=== PATIENT | female | born 1985 ===

== ENCOUNTER 2020-08-21 05:54 | Inpatient (IN) ==
[2020-08-21] MEDS ORDERED: CITRIC ACID/SODIUM CITRATE 15 ML UDC PO SCH (06:00)
[2020-08-21] MEDS ORDERED: ceFAZolin 2,000 MG in SYRINGE 0 ML IV SCH (06:00)
[2020-08-21] MEDS ORDERED: LACTATED RINGER'S 1,000 ML IV SCH ×2 (06:00→12:45)
[2020-08-21 06:42] LABS: Basophils # (auto) 0.01 K/uL (0-0.2); Basophils % (auto) 0.1 %; Eosinophils # (auto) 0.05 K/uL (0-0.5); Eosinophils % (auto) 0.6 %; Hematocrit (blood only) 35.2 % (37-47); Hemoglobin 11.5 g/dL (12.0-16.0); Immature Granulocytes # (auto) 0.02 K/uL (0.00-0.02); Immature Granulocytes % (auto) 0.2 %; Lymphocytes % (auto) 22.4 %; Mean Corpuscular Hemoglobin 28.1 pg (25-34); Mean Corpuscular Hgb Conc 32.7 g/dL (32-36); Mean Corpuscular Volume 86.1 fL (80-100); Mean Platelet Volume 9.7 fL (7.4-10.4); Monocytes # (auto) 0.58 K/uL (0.11-0.59); Monocytes % (auto) 6.5 %; Neutrophils # (auto) 6.26 K/uL (1.4-6.5); Neutrophils % (auto) 70.2 %; Platelet Count 253 K/uL (130-400); RDW Coefficient of Variation 13.5 % (11.5-14.5); RDW Standard Deviation 42.2 fL (36.4-46.3); Red Blood Count 4.09 M/uL (4.2-5.4); White Blood Count 8.92 K/uL (4.8-10.8)
[2020-08-21] MEDS ORDERED: fentaNYL citrate 100 MCG/2 ML VIAL ONE (08:49)
[2020-08-21] MEDS ORDERED: OXYTOCIN 10 UNITS/ML VIAL ONE ×3 (08:49→11:09)
[2020-08-21] MEDS ORDERED: MoRPHine SULFATE PF 1 MG/ML 10 ML AMP/VIAL ONE (08:49)
--- NOTE | 2020-08-21 09:05 | History & Physical Bridge Note ---
Date of Service August 21, 2020 History & Physical Bridge Note I have examined the patient, reviewed the History & Physical and in the interval since the performance of the History & Physical I have noted the following changes of clinical significance: no changes noted
--- NOTE | 2020-08-21 10:20 | Anesthesiology Consultation ---
Date of Service August 21, 2020 Covid 19 negative on 08/16/20. Assessment & Plan Chart Review Chart Review: Acceptable Risk for Surgery and Patient NOT seen in Pre Admission Testing Consults Requested none ASA ASA2 Proposed Anesthesia Anesthesia Type: MAC Spinal Risk / Benefits Reviewed With: PT / POA / Parent / Guardian, Accepts Plan and Informed Consent Obtained History Surgery Operation Date: 08/21/20 07:30 Proposed Procedures p Section in LD, Tubal Ligation - Adis Zamarripa MD Height/Weight Height: 5 ft 4 in Weight: 75.75 kg Allergies Allergy/AdvReac Type Severity Reaction Status Date / Time No Known Allergies Allergy Verified 08/21/20 06:10 Medications Home Medications Medication Instructions Recorded Confirmed Last Taken [id number] fumarate-FA 1 tab PO QAM 08/19/20 08/21/20 08/20/20 08:00 [] famotidine [Pepcid] 20 mg PO DAILY PRN 08/19/20 08/21/20 08/21/20 05:00 ferrous sulfate 325 mg PO Q2D 08/19/20 08/21/20 08/20/20 08:00 NPO Date Last Intake of Fluids: 08/20/20 Time Last Intake of Fluids: 19:00 Date Last Intake of Solids: 08/20/20 Time Last Intake of Solids: 19:00 Past Medical History Medical History Anemia iron def Heartburn during History of anesthesia reaction spinal anesthesia with last , patient became SOB during the surgery but no clinical problems. Premature delivery before 37 weeks ~2012, delivered baby at 27 weeks r/t low amniotic fluid SOB (shortness of breath) followed with Dr Blum x1 r/t SOB -- cardiac workup negative. dx SOB r/t iron def anemia and . Exercise / Class Metabolic Activity II 4-5 Yardwork/Stairs/Walk up hill Past Family History Family History Other No family history of adverse response to anesthesia Past Surgical History Surgical History History of section x2 Past Anesthesia History No Hx of Anesthesia Complications and No Family Hx of Anesthesia Complications History of PONV No Hx of PONV and No Hx of Motion Sickness Social History Smoking Status: Never smoker Do You Dip or Chew Tobacco: No Hx Alcohol Use: No Hx Substance Use: No substance use type: does not use Review of Systems no chest pain or sob Physical Exam Vital Signs Last Vital Signs Temp 36.7 C 08/21/20 06:07 Pulse 75 08/21/20 06:07 Resp 18 08/21/20 06:07 BP 114/75 08/21/20 06:07 ENMT Mouth: no TMJ abnormality Thyromental Distance: > or= 3.5 Finger Breadths Mallampati Class: II Neck normal visual inspection Respiratory normal respiratory effort Auscultation: lungs clear to auscultation bilaterally Cardiovascular Rate/Rhythm: regular rate and regular rhythm Musculoskeletal Spine: normal cervical ROM Neurologic moves all extremities Psychiatric Orientation: alert and oriented x 3 Testing Laboratory Results 08/21/20 06:26 Blood Type O Positive 08/21/20 06:26 Antibody Screen NEGATIVE 08/21/20 06:26
[2020-08-21] MEDS ORDERED: HYDROmorphone INJ 0.5 MG/0.5 ML SYR IV PRN (10:25)
[2020-08-21] MEDS ORDERED: NALOXONE HCL 0.4 MG/1 ML VIAL/CARP IV PRN (10:25)
[2020-08-21] MEDS ORDERED: MoRPHine SULFATE PF 1 MG/ML 10 ML AMP/VIAL INT SPINAL ONE (10:25)
[2020-08-21] MEDS ORDERED: LACTATED RINGER'S 500 ML IV PRN (10:25)
[2020-08-21] MEDS ORDERED: NALOXONE HCL 0.08 MG in SYRINGE 1.8 ML IV PRN (10:25)
[2020-08-21] MEDS ORDERED: NALOXONE HCL 1 MG in SODIUM CHLORIDE 0.9% 1000ML 1,000 ML IV PRN (10:25)
[2020-08-21] MEDS ORDERED: diphenhydrAMINE 50 MG/ML VIAL IV PRN (10:25)
[2020-08-21] MEDS ORDERED: ePHEDrine sulfate 50 MG/ML AMP IV PRN (10:25)
[2020-08-21] MEDS ORDERED: ONDANSETRON INJ 2 MG/ML 2 ML VIAL IV PRN (10:25)
[2020-08-21] MEDS ORDERED: DC INTRASPINAL MORPHINE SCH (10:30)
[2020-08-21] MEDS ORDERED: SODIUM CHLORIDE 0.9% 1000ML 1,000 ML IV SCH (10:30)
[2020-08-21] MEDS ORDERED: NO NARCOTICS OR SEDATIVES SCH (10:30)
[2020-08-21] MEDS ORDERED: PHENYLEPHRINE 100MCG/ML 5ML SYR ONE (10:48)
[2020-08-21] MEDS ORDERED: OXYTOCIN 10 UNITS/ML VIAL IM ONE (10:53)
[2020-08-21] MEDS ORDERED: SEPRAFILM ADHESION BARR (4) 3X2.5IN TOP ONE (11:20)
[2020-08-21] MEDS ORDERED: miSOPROStoL 200 MCG TAB ONE (11:56)
[2020-08-21] MEDS ORDERED: SUPERCREAM 0.870% 15 GM JAR EXT PRN (12:41)
[2020-08-21] MEDS ORDERED: DIPHTHERIA/TETANUS/PERTUSSIS 0.5 ML SYR/VIAL IM ONE (12:41)
[2020-08-21] MEDS ORDERED: HYDROCORTISONE ACETATE 25 MG SUPP PR PRN (12:41)
[2020-08-21] MEDS ORDERED: MAGNESIUM HYDROXIDE SUSP 30 ML UDC PO PRN (12:41)
[2020-08-21] MEDS ORDERED: BENZOCAINE 20% AER SPR 82.5 GM CAN EXT PRN (12:41)
[2020-08-21] MEDS ORDERED: SENNA 8.6 MG TAB PO PRN (12:41)
--- NOTE | 2020-08-21 12:41 | Post Operative Brief Note ---
Immediate Post Op Note v1 Date of Surgery August 21, 2020 Pre & Post Diagnosis Operation Date: 08/21/20 07:30 Pre-Op Diagnosis: Classical Post-Op Diagnosis: Classical I identified the patient and participated in the time-out.: Yes Procedure Operation Date: 08/21/20 07:30 Actual Procedures p Section in LD, bilateral Tubal Ligation(Bilateral) - Adis Zamarripa MD Surgeon Adis Zamarripa MD Plant Chief dr sullivan Estimated Blood Loss 600 Findings Consistent with Post-Op Diagnosis Drains [place] Catheter
--- NOTE | 2020-08-21 13:07 | Operative Report (OR) ---
DATE OF OPERATION: 08/21/2020 INDICATION FOR SURGERY: This is a 35-year-old , status post 2 sections, wishes to have repeat and permanent sterilization. PREOPERATIVE DIAGNOSES: 1. at term. 2. Previous section. 3. Undesired fertility. POSTOPERATIVE DIAGNOSES: 1. at term. 2. Previous section. 3. Undesired fertility. PROCEDURES: 1. Repeat section. 2. Bilateral tubal ligation. SURGEON: Adis Zamarripa MD. AUTOCAD DRAFTSMAN: Dr. Multani. ESTIMATED BLOOD LOSS: 600 mL. INTRAVENOUS FLUIDS: 2600 mL. URINE OUTPUT: 225 mL of clear urine at the end of the procedure. FINDINGS: Uterus had adhesions of the bladder to the upper uterine wall close to the fundus. Tubes, ovaries and rest of the pelvic exam is unremarkable. Live delivered. Weight and Apgars in the pediatric record. Infant was in cephalic presentation. COMPLICATIONS: None. DRAINS: [place] catheter. SPECIMEN: Placenta, left and right fallopian tube. DISPOSITION: Stable to recovery room. ANESTHESIA: Spinal. DESCRIPTION OF PROCEDURE: The patient was taken to the operating room where she was prepped and draped in normal sterile fashion. A timeout was called. The patient has earlier received antibiotics prophylaxis. A Pfannenstiel incision was made through the old scar and carried down to the fascia. Fascia was incised in the midline and extended laterally on both sides. Peritoneum was identified and entered sharply. Once inside the abdomen, findings were as dictated above. The bladder was adherent to the upper uterus. Careful dissection was used to dissect the bladder. Once the vesicouterine peritoneum was identified and dissected off the lower segment of the uterus, a transverse incision was made with a scalpel and extended laterally on both sides. Amniotomy was performed and the was removed. Mouth was suctioned. Cord was clamped and cut after 1 minute. was handed over to the waiting pediatric team. Cord blood was obtained. Placenta was manually removed. Uterus was exteriorized and cleared of all clots and debris. Uterus was closed in 2 layers using Vicryl suture. There was good hemostasis post closure. Left and right fallopian tubes were identified and followed to their fimbriated end by both surgeon and medical support assistant. Modified [place] tubal ligation was performed. Left and right fallopian tubes were transected and sent to pathology for pathological analysis. There was good hemostasis. Copious amount of irrigation was used to irrigate the abdomen and the uterus was returned to the abdominal cavity. Bladder peritoneum was reapproximated using plain suture. Seprafilm was placed on the incision site and around the uterus to prevent future adhesions. Peritoneum was identified and closed in a running fashion using plain suture. Fascia was approximated using Vicryl stitch. SubQ space was closed with plain suture and skin was closed with 4-0 Monocryl. All instruments were removed from the abdomen including the Leonardo retractor, and sponges and needles were accounted for x2. The patient was returned to recovery in stable condition. I attest to the content of the Intraoperative Record and any orders documented therein. Any exception s are noted below.
[2020-08-21] MEDS: OXYTOCIN 20 UNITS in LACTATED RINGER'S 1,000 ML IV SCH ×2 (14:21→23:49)
--- NOTE | 2020-08-21 15:09 | Anesthesiology Progress Note ---
Date of Service August 21, 2020 Anesthesia Post Procedure Vital Signs Vital Signs: Temp Pulse Resp BP Pulse Ox 08/21/20 14:15 72 99 08/21/20 14:14 75 87 L 08/21/20 14:10 76 126/83 99 08/21/20 14:05 77 98 08/21/20 14:03 79 89 L 08/21/20 14:00 73 132/82 96 08/21/20 13:55 80 95 08/21/20 13:50 71 100 08/21/20 13:49 69 119/71 08/21/20 13:45 64 100 08/21/20 13:40 75 120/80 99 08/21/20 13:35 68 99 08/21/20 13:30 75 18 126/69 99 08/21/20 13:25 66 99 08/21/20 13:24 63 126/69 08/21/20 13:20 75 97 08/21/20 13:15 65 96 08/21/20 13:10 72 96 08/21/20 13:05 68 96 08/21/20 13:00 73 127/66 95 08/21/20 12:55 71 94 08/21/20 12:50 68 141/65 H 95 08/21/20 12:45 72 95 08/21/20 12:40 73 118/77 95 08/21/20 12:35 75 95 08/21/20 12:30 78 95 08/21/20 12:29 77 125/78 08/21/20 12:25 93 H 95 08/21/20 12:21 88 93 08/21/20 12:19 75 18 111/72 100 08/21/20 12:14 87 99 08/21/20 12:10 36.5 C 77 18 110/55 L 08/21/20 12:09 79 100 08/21/20 10:22 85 100 08/21/20 06:07 36.7 C 75 18 114/75 Transfer of Care Handoff Completed per policy Notes Mental Status: alert / awake / arousable Patient Amnestic to Procedure: Yes Nausea / Vomiting: adequately controlled Pain: adequately controlled Airway Patency, RR, SpO2: stable & adequate BP & HR: stable & adequate Hydration State: stable & adequate Neuraxial Anesthesia: was administered and sensory block is resolving Anesthetic Complications: no major complications apparent and Pt Satisfied with anesthetic care
[2020-08-21] MEDS: SIMETHICONE 80 MG CHEW PO SCH ×3 (16:35→20:40)
[2020-08-21] MEDS: KETOROLAC 30 MG/ML VIAL IV PRN (16:35)
[2020-08-21] MEDS: DOCUSATE SODIUM 100 MG CAP PO SCH (20:40)
[2020-08-22] MEDS: KETOROLAC 30 MG/ML VIAL IV PRN (01:02)
[2020-08-22] MEDS ORDERED: diphenhydrAMINE 50 MG/ML VIAL IV PRN (04:30)
[2020-08-22] MEDS ORDERED: ZOLPIDEM TARTRATE 5 MG TAB PO PRN (04:30)
[2020-08-22] MEDS ORDERED: ONDANSETRON INJ 2 MG/ML 2 ML VIAL IV PRN (04:30)
[2020-08-22] MEDS ORDERED: PROMETHAZINE HCL 25 MG in SODIUM CHLORIDE 0.9% 50 ML IV PRN (04:30)
[2020-08-22] MEDS ORDERED: diphenhydrAMINE Capsule 25 MG CAP PO PRN (04:30)
[2020-08-22 06:37] LABS: Basophils # (auto) 0.01 K/uL (0-0.2); Basophils % (auto) 0.1 %; Eosinophils # (auto) 0.02 K/uL (0-0.5); Eosinophils % (auto) 0.2 %; Hematocrit (blood only) 33.9 % (37-47); Hemoglobin 11.3 g/dL (12.0-16.0); Immature Granulocytes # (auto) 0.02 K/uL (0.00-0.02); Immature Granulocytes % (auto) 0.2 %; Lymphocytes # (auto) 1.61 K/uL (1.2-3.4); Lymphocytes % (auto) 15.7 %; Mean Corpuscular Hemoglobin 28.5 pg (25-34); Mean Corpuscular Hgb Conc 33.3 g/dL (32-36); Mean Corpuscular Volume 85.4 fL (80-100); Mean Platelet Volume 9.5 fL (7.4-10.4); Monocytes # (auto) 0.58 K/uL (0.11-0.59); Monocytes % (auto) 5.6 %; Neutrophils # (auto) 8.04 K/uL (1.4-6.5); Neutrophils % (auto) 78.2 %; Platelet Count 234 K/uL (130-400); RDW Coefficient of Variation 13.4 % (11.5-14.5); RDW Standard Deviation 41.8 fL (36.4-46.3); Red Blood Count 3.97 M/uL (4.2-5.4); White Blood Count 10.28 K/uL (4.8-10.8)
[2020-08-22] MEDS: PRENATAL VITAMIN 1 TAB PO SCH (08:21)
[2020-08-22] MEDS: SIMETHICONE 80 MG CHEW PO SCH ×4 (08:21→20:48)
[2020-08-22] MEDS: FERROUS SULFATE 325 MG TAB PO SCH (08:21)
[2020-08-22] MEDS: IBUPROFEN 600 MG TAB PO PRN ×3 (08:21→19:21)
[2020-08-22] MEDS: DOCUSATE SODIUM 100 MG CAP PO SCH ×2 (08:21→20:48)
--- NOTE | 2020-08-22 08:59 | Surgery Progress Note ---
Date of Service August 22, 2020 Assessment & Plan Admission and Anticipated Discharge Date Admission Date: August 21, 2020 Subjective POD#1 doing well passing gas tolerating diet Physical Exam Constitutional: WD/WN, vitals as above well developed and comfortable abdomen soft and non-tender no edema neg Carlos Eduardo's Results & Data ([facility]) Vital Signs (Past 12 Hours) Vital Signs Temp Pulse Resp BP Pulse Ox 08/22/20 03:55 36.7 C 76 20 99/62 L 95 08/22/20 02:20 18 95 08/22/20 01:05 16 95 08/22/20 00:15 18 96 08/21/20 23:50 37.1 C 76 18 107/69 97 08/21/20 23:30 16 94 08/21/20 22:20 16 94 08/21/20 21:15 16 95 Laboratory Results 08/21/20 08/21/20 08/22/20 06:26 06:26 05:59 WBC 8.92 10.28 RBC 4.09 L 3.97 L Hgb 11.5 L 11.3 L Hct 35.2 L 33.9 L MCV 86.1 85.4 MCH 28.1 28.5 MCHC 32.7 33.3 RDW Std Deviation 42.2 41.8 RDW Coeff of [place] 13.5 13.4 Plt Count 253 234 MPV 9.7 9.5 Immature Gran % (Auto) 0.2 0.2 Neut % (Auto) 70.2 78.2 Lymph % (Auto) 22.4 15.7 [place] % (Auto) 6.5 5.6 Eos % (Auto) 0.6 0.2 Baso % (Auto) 0.1 0.1 Neut # (Auto) 6.26 8.04 H Lymph # (Auto) 2.00 1.61 [place] # (Auto) 0.58 0.58 Eos # (Auto) 0.05 0.02 Baso # (Auto) 0.01 0.01 Immature Gran # (Auto) 0.02 0.02 Blood Type O Positive Antibody Screen NEGATIVE
[2020-08-22] MEDS: oxyCODONE/ACETAMINOPHEN 5mg/325mg TAB PO PRN ×3 (10:43→19:21)
[2020-08-22] MEDS ORDERED: bisacodyL 5 MG TABEC PO SCH (20:00)
[2020-08-23] MEDS: oxyCODONE/ACETAMINOPHEN 5mg/325mg TAB PO PRN ×3 (00:29→12:09)
[2020-08-23] MEDS: IBUPROFEN 600 MG TAB PO PRN ×3 (00:30→12:10)
[2020-08-23 06:46] LABS: Hematocrit (blood only) 30.9 % (37-47); Hemoglobin 10.2 g/dL (12.0-16.0)
[2020-08-23] MEDS: DOCUSATE SODIUM 100 MG CAP PO SCH (07:13)
[2020-08-23] MEDS: FERROUS SULFATE 325 MG TAB PO SCH (07:13)
[2020-08-23] MEDS: PRENATAL VITAMIN 1 TAB PO SCH (07:13)
[2020-08-23] MEDS: SIMETHICONE 80 MG CHEW PO SCH ×2 (08:42→12:09)
--- NOTE | 2020-08-23 09:21 | Obstetrical Progress Note ---
Date of Service August 23, 2020 Assessment & Plan Admission and Anticipated Discharge Date Admission Date: August 21, 2020 Subjective Patient is seen and examined. She feels well, no complaints. Pain is under control with oral meds. Ambulating without dizziness Voiding without difficulty Tolerating regular diet with out N&V Flatus + BM neg Bleeding is minimal No fever/ chills/ CP/ SOB/ N&V/ Leg pain Breast feeding without problems Vital Signs Temp Pulse Resp BP BP Pulse Ox 08/23/20 08:00 36.9 C 76 18 114/74 08/23/20 00:15 36.9 C 74 16 109/69 96 08/22/20 16:32 37.0 C 79 16 119/79 96 08/22/20 10:45 36.9 C 78 18 102/67 97 Intake and Output 08/22/20 08/23/20 08/23/20 22:59 06:59 14:59 Other: # Unmeasured Voids 1 Lab Results 08/21/20 08/21/20 08/22/20 Range/Units 06:26 06:26 05:59 WBC 8.92 10.28 (4.8-10.8) K/uL RBC 4.09 L 3.97 L (4.2-5.4) M/uL Hgb 11.5 L 11.3 L (12.0-16.0) g/dL Hct 35.2 L 33.9 L (37-47) % MCV 86.1 85.4 (80-100) fL MCH 28.1 28.5 (25-34) pg MCHC 32.7 33.3 (32-36) g/dL RDW Std Deviation 42.2 41.8 (36.4-46.3) fL RDW Coeff of [place] 13.5 13.4 (11.5-14.5) % Plt Count 253 234 (130-400) K/uL MPV 9.7 9.5 (7.4-10.4) fL Immature Gran % (Auto) 0.2 0.2 % Neut % (Auto) 70.2 78.2 % Lymph % (Auto) 22.4 15.7 % [place] % (Auto) 6.5 5.6 % Eos % (Auto) 0.6 0.2 % Baso % (Auto) 0.1 0.1 % Neut # (Auto) 6.26 8.04 H (1.4-6.5) K/uL Lymph # (Auto) 2.00 1.61 (1.2-3.4) K/uL [place] # (Auto) 0.58 0.58 (0.11-0.59) K/uL Eos # (Auto) 0.05 0.02 (0-0.5) K/uL Baso # (Auto) 0.01 0.01 (0-0.2) K/uL Immature Gran # (Auto) 0.02 0.02 (0.00-0.02) K/uL Blood Type O Positive Antibody Screen NEGATIVE 08/23/20 Range/Units 06:18 WBC (4.8-10.8) K/uL RBC (4.2-5.4) M/uL Hgb 10.2 L (12.0-16.0) g/dL Hct 30.9 L (37-47) % MCV (80-100) fL MCH (25-34) pg MCHC (32-36) g/dL RDW Std Deviation (36.4-46.3) fL RDW Coeff of [place] (11.5-14.5) % Plt Count (130-400) K/uL MPV (7.4-10.4) fL Immature Gran % (Auto) % Neut % (Auto) % Lymph % (Auto) % [place] % (Auto) % Eos % (Auto) % Baso % (Auto) % Neut # (Auto) (1.4-6.5) K/uL Lymph # (Auto) (1.2-3.4) K/uL [place] # (Auto) (0.11-0.59) K/uL Eos # (Auto) (0-0.5) K/uL Baso # (Auto) (0-0.2) K/uL Immature Gran # (Auto) (0.00-0.02) K/uL Blood Type Antibody Screen PE: General: Alert, orientedx3, NAD CVS: S1S2 RRR Lungs; CTAB Abd: soft, NT, ND, BS+, fundus firm, below Umbilicus Incision: Clean, dry, intact Perineum intact, Lochia rubra minimal Ext; NT, no edema AP: 35 yo s/p C Section, pod# 2 VSS Afebrile doing well Continue routine postop care Encourage ambulation, PO intake All questions were answered Considering d/c this afternoon Discussed when to call Results & Data ([facility]) Vital Signs (Past 12 Hours) Vital Signs Temp Pulse Resp BP BP Pulse Ox 08/23/20 08:00 36.9 C 76 18 114/74 08/23/20 00:15 36.9 C 74 16 109/69 96
[2020-08-23] MEDS ORDERED: bisacodyL 10 MG SUPP PR PRN (12:42)
== END 2020-08-23 15:15 | disposition home or self-care (01) | DRG 785 ==
LOC: 4S1 05:54 → EDSTATUS 07:30 → 4S2 14:42
PROC: M.PPTLD (2020-08-21 07:30)